=== PATIENT | female | born 1945 | race Caucasian/White ===

== ENCOUNTER 2019-01-02 13:34 | Inpatient (IN) | payer MEDICARE, MEDICAID | END 2019-01-05 17:25 | disposition home or self-care (01) | LOC: ER 13:34 → PCU 3S 18:56 | DX: L03.116 Cellulitis of left lower limb (principal); N17.9 Acute kidney failure, unspecified; I48.91 Unspecified atrial fibrillation; E11.65 Type 2 diabetes mellitus with hyperglycemia ==

== ENCOUNTER 2020-10-23 08:48 | Day surgery (SDC) | payer MEDICARE, MEDICAID ==
[2020-10-23] VITALS (8 sets, daily range): BP systolic 82–161; BP diastolic 46–75
[~2020-10-23] VITALS: Ht 167.6 cm; Wt 96.4 kg
[~2020-10-23 08:48] MED LIST: AMA1T PO; AMIT-189 PO; BUPR8TAB4 SL; FURO20TA4 PO; LANTUS SQ; LEVO25TA2 PO; LISI-604 PO; METO25TA6 PO; PANT40TA54 PO; PROC5TAB56 PO; SIMV10TA2 PO
[2020-10-23] MEDS ORDERED: diphenhydrAMINE 25mg capsule PO PRN (09:20)
[2020-10-23] MEDS ORDERED: normal saline 1,000 ML IV SCH (09:20)
[2020-10-23 10:01] LABS: BASOPHILS # (AUTO) 0.1 X10'3 (0-0.2); BASOPHILS % (AUTO) 0.6 % (0-1); EOSINOPHILS # (AUTO) 0.1 X10'3 (0-0.9); EOSINOPHILS % (AUTO) 1.2 % (0-6); HEMATOCRIT 45.1 % (35.0-45.0); HEMOGLOBIN 15.1 g/dl (12.0-16.0); LYMPHOCYTES # (AUTO) 1.6 X10'3 (1.1-4.8); LYMPHOCYTES % (AUTO) 17.4 % (21-51); MEAN CORPUSCULAR HEMOGLOBIN 31.2 PG (27.0-31.0); MEAN CORPUSCULAR HGB CONC 33.5 g/dL (33.0-36.5); MEAN PLATELET VOLUME 8.1 FL (7.4-10.4); MONOCYTES # (AUTO) 0.5 X10'3 (0-0.9); MONOCYTES % (AUTO) 4.9 % (2-12); NEUTROPHILS # (AUTO) 7.1 X10'3 (1.8-7.7); NEUTROPHILS % (AUTO) 75.9 % (42-75); PLATELET COUNT 250 X10'3 (140-440); RED BLOOD COUNT 4.85 X10'6 (4.20-5.60); RED CELL DISTRIBUTION WIDTH 14.8 % (11.5-14.5); WHITE BLOOD COUNT 9.3 X10'3 (4.5-11.0)
[2020-10-23] MEDS ORDERED: dextrose ORAL solution 15 GM/59 ML bottle PO ONE (10:15)
--- NOTE | 2020-10-23 10:15 | NUR ---
Called Dr. Bhat re pt's BG of 50. Order received for oral glucose shot.
[2020-10-23 10:21] LABS: ALBUMIN 3.7 G/DL (3.4-5.0); ANION GAP 7 (8-16); BLOOD UREA NITROGEN 29 MG/DL (7-18); BUN/CREATININE RATIO 20.6 (6.6-38.0); CALCIUM 10.2 MG/DL (8.5-10.1); CHLORIDE 100 MMOL/L (99-107); CREATININE 1.41 MG/DL (0.40-0.90); MAGNESIUM 1.8 MG/DL (1.5-2.4); POTASSIUM 4.4 MMOL/L (3.5-5.1); SODIUM 140 MMOL/L (135-145); TOTAL CARBON DIOXIDE 32.7 MMOL/L (24-32); eGFR 36 ML/MIN
[2020-10-23 10:23] LABS: GLUCOSE 42 MG/DL (70-104)
[2020-10-23] MEDS ORDERED: SENN-263 PO (10:31)
[2020-10-23] MEDS ORDERED: SERT50TA10 PO (10:31)
[2020-10-23] MEDS ORDERED: MELA1TAB25 SL (10:31)
[2020-10-23] MEDS ORDERED: ATOR40TA72 PO (10:31)
[2020-10-23] MEDS ORDERED: AMIO200T61 PO (10:31)
[2020-10-23] MEDS ORDERED: ERGO400C PO (10:32)
[2020-10-23] MEDS ORDERED: fentaNYL/PF 50MCG/1 ML 2ML syringe ONE ×2 (11:45→12:19)
[2020-10-23] MEDS ORDERED: LIDOcaine 1% (10mg/ml)w/preservative injection 20ml MDV ONE (11:46)
[2020-10-23] MEDS ORDERED: iohexol 350 MG/ML 50ML vial IV ONE (11:46)
[2020-10-23] MEDS ORDERED: heparin 1,000unit/ml 10ml vial 10 ML ONE (11:46)
[2020-10-23] MEDS ORDERED: midazolam 2 mg/2 ml injection ONE ×2 (11:46→12:19)
[2020-10-23] MEDS ORDERED: iohexol 350MG/ML 100ml bottle IV ONE (11:46)
[2020-10-23] MEDS ORDERED: proCHLORperazine 10 MG/2 ml inj ONE (12:13)
== END 2020-10-23 16:30 | disposition home or self-care (01) ==
LOC: SSTAY O 08:48
PROVIDERS: ATTEND Internal Medicine Cardiovascular Disease
DX: I35.0 Nonrheumatic aortic (valve) stenosis (principal); I25.10 Atherosclerotic heart disease of native coronary artery without angina pectoris; E11.9 Type 2 diabetes mellitus without complications; I27.20 Pulmonary hypertension, unspecified; I48.0 Paroxysmal atrial fibrillation; E78.5 Hyperlipidemia, unspecified; G47.30 Sleep apnea, unspecified; K21.9 Gastro-esophageal reflux disease without esophagitis; E66.9 Obesity, unspecified; Z68.34 Body mass index [BMI] 34.0-34.9, adult; G89.29 Other chronic pain; D50.0 Iron deficiency anemia secondary to blood loss (chronic); I11.0 Hypertensive heart disease with heart failure; I50.30 Unspecified diastolic (congestive) heart failure; Z87.891 Personal history of nicotine dependence; Z90.49 Acquired absence of other specified parts of digestive tract; Z98.890 Other specified postprocedural states; Z96.652 Presence of left artificial knee joint; Z90.710 Acquired absence of both cervix and uterus; Z98.41 Cataract extraction status, right eye; Z98.42 Cataract extraction status, left eye; Z88.0 Allergy status to penicillin; Z88.1 Allergy status to other antibiotic agents; Z88.5 Allergy status to narcotic agent; Z88.8 Allergy status to other drugs, medicaments and biological substances; Z79.899 Other long term (current) drug therapy; Z79.4 Long term (current) use of insulin; Z79.01 Long term (current) use of anticoagulants
CPT/HCPCS: 36415; 80048; 82948; 83735; 85025; 85610; 93005; 93460; 99152; 99153; C1760; C1769; C1894; J0780; J1644; J2001; J2250; J3010; J7030; Q0163; Q9967; A4620; C1751

== ENCOUNTER 2020-10-25 10:07 | Outpatient (CLI) | payer MEDICARE, MEDICAID ==
[~2020-10-25 10:07] MED LIST changes: +AMIO200T61 PO; -AMIT-189 PO; +ATOR40TA72 PO; -BUPR8TAB4 SL; +ERGO400C PO; -FURO20TA4 PO; -LEVO25TA2 PO; -LISI-604 PO; +MELA1TAB25 PO; +SENN-263 PO; +SERT-433 PO; -SIMV10TA2 PO
[2020-10-25 11:15] LABS: BASOPHILS % (AUTO) 0.3 % (0-1); EOSINOPHILS # (AUTO) 0.2 X10'3 (0-0.9); EOSINOPHILS % (AUTO) 2.4 % (0-6); HEMATOCRIT 40.6 % (35.0-45.0); HEMOGLOBIN 13.6 g/dl (12.0-16.0); LYMPHOCYTES # (AUTO) 1.5 X10'3 (1.1-4.8); LYMPHOCYTES % (AUTO) 15.5 % (21-51); MEAN CORPUSCULAR HEMOGLOBIN 31.5 PG (27.0-31.0); MEAN CORPUSCULAR HGB CONC 33.6 g/dL (33.0-36.5); MEAN CORPUSCULAR VOLUME 93.7 FL (78-98); MEAN PLATELET VOLUME 8.2 FL (7.4-10.4); MONOCYTES # (AUTO) 0.5 X10'3 (0-0.9); MONOCYTES % (AUTO) 5.3 % (2-12); NEUTROPHILS # (AUTO) 7.1 X10'3 (1.8-7.7); NEUTROPHILS % (AUTO) 76.5 % (42-75); PLATELET COUNT 200 X10'3 (140-440); RED BLOOD COUNT 4.34 X10'6 (4.20-5.60); RED CELL DISTRIBUTION WIDTH 14.6 % (11.5-14.5); WHITE BLOOD COUNT 9.3 X10'3 (4.5-11.0)
[2020-10-25 11:25] LABS: PARTIAL THROMBOPLASTIN TIME 26 SECONDS (22-32)
[2020-10-25 11:26] LABS: ALANINE AMINOTRANSFERASE 28 U/L (12-78); ALBUMIN/GLOBULIN RATIO 0.8 (1.1-1.5); ALKALINE PHOSPHATASE 76 IU/L (46-116); ANION GAP 9 (8-16); ASPARTATE AMINO TRANSFERASE 25 U/L (10-37); BILIRUBIN,TOTAL 0.5 MG/DL (0.1-1.0); BLOOD UREA NITROGEN 33 MG/DL (7-18); BUN/CREATININE RATIO 24.8 (6.6-38.0); CHLORIDE 102 MMOL/L (99-107); CREATININE 1.33 MG/DL (0.40-0.90); GLUCOSE 93 MG/DL (70-104); POTASSIUM 4.2 MMOL/L (3.5-5.1); SODIUM 139 MMOL/L (135-145); TOTAL CARBON DIOXIDE 27.8 MMOL/L (24-32); TOTAL PROTEIN 6.6 G/DL (6.4-8.2); eGFR 39 ML/MIN
[2020-11-27] MEDS ORDERED: MULT-1085 PO (10:30)
[2020-11-27] MEDS ORDERED: ATOR40TA72 PO (10:34)
[2020-12-06] MEDS ORDERED: CHOL100025 PO (10:57)
[2020-12-06] MEDS ORDERED: METO25TA6 PO (10:57)
[2020-12-06] MEDS ORDERED: GLIM2TAB6 PO (10:57)
== END 2020-10-25 23:59 | disposition home or self-care (01) ==
LOC: VAS 10:07
PROVIDERS: ATTEND Internal Medicine Cardiovascular Disease
DX: I35.0 Nonrheumatic aortic (valve) stenosis (principal); K86.89 Other specified diseases of pancreas; M81.0 Age-related osteoporosis without current pathological fracture; M48.061 Spinal stenosis, lumbar region without neurogenic claudication; I70.0 Atherosclerosis of aorta; J12.9 Viral pneumonia, unspecified; R59.0 Localized enlarged lymph nodes; I49.8 Other specified cardiac arrhythmias; I65.23 Occlusion and stenosis of bilateral carotid arteries; I51.7 Cardiomegaly; R94.2 Abnormal results of pulmonary function studies
CPT/HCPCS: 36415; 71046; 71275; 74174; 80053; 85025; 85610; 85730; 93005; 93880; 94010; 94727; 94729

== ENCOUNTER 2020-11-16 14:15 | Outpatient (CLI) | payer MEDICARE, MEDICAID ==
[~2020-11-16] VITALS: Ht 167.6 cm; Wt 96.2 kg
[~2020-11-16 14:15] MED LIST changes: -MELA1TAB25 PO; +MELA1TAB25 SL
--- NOTE | 2020-11-16 17:14 | NUR ---
Patient was seen today by Dr. Perera and Dr. Cope with his present. [id number], vitals done, walk test unable to be completed. Patient using wheelchair, and unable to perform test. Patient education done. Patient was able to ask questions and discuss options of treatment.
[2020-11-16 17:37] VITALS: BP 148/73
[2020-11-27] MEDS ORDERED: MULT-1085 PO (10:30)
[2020-11-27] MEDS ORDERED: ATOR40TA72 PO (10:34)
== END 2020-11-16 23:59 | disposition home or self-care (01) ==
LOC: TAVR 14:15
PROVIDERS: ATTEND Internal Medicine Cardiovascular Disease
DX: I35.0 Nonrheumatic aortic (valve) stenosis (principal); R06.02 Shortness of breath; I65.29 Occlusion and stenosis of unspecified carotid artery

== ENCOUNTER 2021-01-16 10:22 | Outpatient (CLI) | payer MEDICARE, MEDICAID ==
[~2021-01-16 10:22] MED LIST changes: -AMA1T PO; +ASPI81TA53 PO; +CHOL100025 PO; -ERGO400C PO; +GLIM2TAB6 PO; +LOP25T PO; +MELA1TAB25 PO; -MELA1TAB25 SL; -METO25TA6 PO; +MULT-1085 PO; -PROC5TAB56 PO; -SENN-263 PO
== END 2021-01-16 23:59 | disposition home or self-care (01) ==
LOC: CARD DIAG 10:22
PROVIDERS: ATTEND Internal Medicine Cardiovascular Disease
DX: I37.1 Nonrheumatic pulmonary valve insufficiency (principal); I35.0 Nonrheumatic aortic (valve) stenosis; R06.02 Shortness of breath; I65.29 Occlusion and stenosis of unspecified carotid artery
CPT/HCPCS: 93005; 93308